=== PATIENT | male | born 1970 | race Caucasian/White ===

== ENCOUNTER 2018-05-08 10:49 | Inpatient (IN) ==
[2018-04-30 16:16] LABS: HEMATOCRIT 30.5 % (42.0-52.0); HEMOGLOBIN 9.3 g/dL (14.0-18.0); MCH 22.7 PG (27-31); MCHC 30.5 g/dL (33-37); MCV 74.4 FL (81-99); PLT 758 X1000 (130-400); RDW 18.4 % (11.5-14.5); WBC 8.55 X1000 (4.8-10.8)
[2018-04-30 16:25] LABS: INR 1.44; PROTIME 18.7 Seconds (11.0-16.0)
[2018-04-30 16:36] LABS: AGAP 7; BUN 5 mg/dL (8-22); CALCIUM 8.3 mg/dL (8.8-10.2); CHLORIDE 93 mmol/L (98-107); COSMO 255; CREATININE 0.5 mg/dL (0.7-1.2); ESTIMATED GFR > 60; GLUCOSE 115 mg/dL (70-104); POTASSIUM 4.2 mmol/L (3.5-5.1); SODIUM 128 mmol/L (136-145); TCO2 28 mmol/L (25-35)
[2018-04-30 16:56] LABS: BASO 2 % (0-1); EOS 2 % (1-10); LYMPHS 24 % (21-51); MONO 6 % (1-9); SEGS 66 % (42-75)
[2018-04-30 16:57] LABS: HYPOCHROM 2+; TARGET CELLS 1+
[2018-05-08] MEDS ORDERED: KEFZOL 1 GM/D5W 1 GM/50 ML IVPB ONE (11:34)
[2018-05-08] MEDS ORDERED: LR 1,000 ML ONE (11:34)
[2018-05-08 12:14] LABS: INR 2.21; PROTIME 26.1 Seconds (11.0-16.0)
[2018-05-08] MEDS ORDERED: DIPRIVAN 1% ONE (12:44)
[2018-05-08] MEDS ORDERED: XYLOCAINE-MPF 2% ONE (12:44)
[2018-05-08] MEDS ORDERED: FENTANYL ONE ×2 (12:45→13:34)
[2018-05-08] MEDS ORDERED: KEFZOL ONE (12:47)
[2018-05-08] MEDS ORDERED: NS 2,000 ML ONE (12:47)
[2018-05-08] MEDS ORDERED: HEPARIN ONE ×2 (12:47→13:59)
[2018-05-08] MEDS ORDERED: QUELICIN (DOSE) ONE (13:13)
[2018-05-08] MEDS ORDERED: ZEMURON ONE (13:14)
[2018-05-08] MEDS ORDERED: HEPARIN (DOSE) ONE (13:23)
[2018-05-08 14:05] LABS: URINE SOURCE CATH
[2018-05-08 14:11] LABS: BILIRUBIN URINE NEGATIVE (NEGATIVE); BLOOD URINE NEGATIVE (NEGATIVE); COLOR YELLOW; GLUCOSE URINE NEGATIVE (NEGATIVE); KETONE URINE NEGATIVE (NEGATIVE); LEUKOCYTES URINE NEGATIVE (NEGATIVE); NITRITE URINE NEGATIVE (NEGATIVE); PROTEIN URINE NEGATIVE (NEGATIVE); TURBIDITY URINE CLEAR (CLEAR); UR EPITHELIAL CELLS <10 /HPF (<10); URINE BACTERIA NEGATIVE /HPF; URINE RBC <10 /HPF (<10); URINE WBC <10 /HPF (<10); UROBILINOGEN URINE NORMAL (NORMAL)
[2018-05-08] MEDS ORDERED: ROBINUL ONE (15:19)
[2018-05-08] MEDS ORDERED: NEOSTIGMINE ONE (15:19)
[2018-05-08] MEDS ORDERED: PROTAMINE SULFATE ONE (15:37)
[2018-05-08] MEDS ORDERED: NS 1,000 ML ONE (16:26)
[2018-05-08] MEDS: DILAUDID ONE ×6 (16:26→17:05)
[2018-05-08] MEDS: DILAUDID IV PRN ×2 (21:22→23:22)
--- NOTE | 2018-05-08 22:36 | OPERATIVE NOTE ---
PROCEDURE DATE: 05/08/2018 NAME OF PROCEDURE: 1. Vein graft fistulogram. 2. Thrombectomy of vein graft. 3. Ligation of multiple arteriovenous fistulae. 4. Percutaneous balloon angioplasty of the vein graft stenosis. 5. Debridement of skin and soft tissue of the transmetatarsal amputation site. SURGEON: Jacques Holm MD. ASSEMBLY LINE INSPECTOR: NINO Mendez. PREOPERATIVE DIAGNOSES: 1. Transmetatarsal amputation site necrosis. 2. Vein graft thrombosis/dysfunction. POSTOPERATIVE DIAGNOSES: 1. Transmetatarsal amputation site necrosis. 2. Vein graft thrombosis/dysfunction, with vein graft occlusion and stenosis. DESCRIPTION OF PROCEDURE: Under satisfactory general anesthesia, the left leg and foot were prepped and draped in a sterile fashion. We did cover up the foot. We imaged the vein graft in its proximal aspect and percutaneously stuck it in a Seldinger technique and put a 6-Ukrainian sheath. We gave the patient 5000 units of heparin. We then shot a fistulogram , revealing multiple AV fistulae in the thigh and a vein graft stenosis at the knee. We first cut down and ligated the multiple AV fistulae of the thigh. We then passed a 0.018 wire across the stenosis and passed a 3 x 2 saber balloon across the stenosis and ballooned it to nominal pressures for a minute. This resolved that stenosis. We then shot further contrast down the leg and noticed that the main vein graft took an S-shaped turn. Off of that again were multiple AV fistulae and then a thrombosis of the vein graft. We ligated the fistulae. We then traversed the curved portion of the vein graft using a Glidewire and a Luray catheter. We could not get the wire, though, to continue down the main vein graft. Rather, it would go off the branch. So we cut down on the vein graft near the ankle and did a transverse vein graftotomy, passed a 3- Melany distally and proximally, and removed clot. We really did not get good back bleeding. We shot an arteriogram through the vein graft, and there was poor flow into the foot through the posterior tibial artery. So we really did not have adequate runoff into the foot. We then were able to finally traverse or get into the branch of the vein graft that continued on to the anastomosis, and we ballooned it after doing the thrombectomy using a 4 mm balloon, only to 5 atmospheres, never to nominal pressures. Following this, we closed the vein graftotomy with 7-0 Prolene stitches. We shot a completion arteriogram and again did not have good runoff into the foot, so we felt that this probably was futile to attempt further revision of the vein graft. So we came back up and removed our sheath and closed that hole in the vein graft under direct visualization using a 6-0 Prolene gvpany-fg-dsvke stitch. We did give the patient 10 mg of protamine to reverse the heparin that we had given. We closed all of our wounds with 3-0 Polysorb in the subcutaneous tissue, and the skin was closed with jaleel. Gentle pressure was applied with gauze 4x4s. Before we did the wound coverage, we did debride the transmetatarsal stump, removing the skin and soft tissue down to the underlying soft tissue, even to the tarsal bones. There was really no evidence of healing. So we covered that with Xeroform, and then we went ahead and covered all of our leg wounds with gauze, Kerlix, and an Horacio and wrapped the foot with a Kerlix. So he was sent to the recovery room after probably 150 mL of blood loss. There was 110 mL of contrast used. He tolerated the procedure satisfactorily and was sent to the recovery room in satisfactory condition. cc: Jacques Holm MD MTDD
[2018-05-09] MEDS: NORCO-10 PO PRN ×3 (00:15→12:54)
[2018-05-09] MEDS: DILAUDID IV PRN ×9 (02:58→22:24)
[2018-05-09] MEDS: NS 1,000 ML IV SCH ×2 (05:40→19:56)
[2018-05-09 06:02] LABS: BASO# 0.03 X1000 (0.0-0.2); BASO% 0.2 % (0.0-0.8); EOS# 0.07 X1000 (0.0-0.7); EOS% 0.5 % (0.0-10.0); HEMATOCRIT 27.8 % (42.0-52.0); HEMOGLOBIN 8.3 g/dL (14.0-18.0); IMM GRAN# 0.04 X1000 (0.0-0.04); IMM GRAN% 0.3 % (0.0-0.5); LYMPH# 2.34 X1000 (1.2-3.4); LYMPH% 16.3 % (20.5-51.1); MCH 22.3 PG (27-31); MCHC 29.9 g/dL (33-37); MCV 74.5 FL (81-99); MONO# 2.24 X1000 (0.11-0.59); MONO% 15.6 % (1.7-9.3); MPV 9.2 FL (7.4-10.4); NEUT% 67.1 % (42.2-75.2); PLT 660 X1000 (130-400); RBC 3.73 XMIL (4.7-6.1); RDW 18.3 % (11.5-14.5); WBC 14.32 X1000 (4.8-10.8)
[2018-05-09 06:03] LABS: AGAP 12; BUN 4 mg/dL (8-22); CALCIUM 7.9 mg/dL (8.8-10.2); CHLORIDE 97 mmol/L (98-107); COSMO 267; CREATININE 0.4 mg/dL (0.7-1.2); ESTIMATED GFR > 60; GLUCOSE 97 mg/dL (70-104); POTASSIUM 3.5 mmol/L (3.5-5.1); SODIUM 135 mmol/L (136-145); TCO2 26 mmol/L (25-35)
[2018-05-09 06:14] LABS: INR 2.25; PROTIME 26.5 Seconds (11.0-16.0)
[2018-05-09] MEDS: PERIDEX MT SCH ×3 (08:03→22:24)
[2018-05-09] MEDS: KEFZOL 1 GM/D5W 1 GM/50 ML IVPB IV SCH ×2 (08:11→16:00)
--- NOTE | 2018-05-09 09:25 | GENERAL SURGERY PROGRESS NOTE ---
DATE: 05/09/2018 TIME: 7:55 in the morning. Mr. Reardon is afebrile. Heart rate 113, blood pressure 122/78. His white count is 14,300, hemoglobin 8.3, hematocrit 27.8. ProTime is 26.5, INR 2.25. BUN 4, creatinine 0.4. I discussed with him the imminent need for amputation. I discussed with him the fact that we could not revise his bypass adequately. He understands that he will face amputation, and above the knee will be what is required in order for healing. His ProTime remains out this morning. Will recheck his ProTime in the morning. I will order Kefzol. cc: Jacques Holm MD
[2018-05-10] MEDS: KEFZOL 1 GM/D5W 1 GM/50 ML IVPB IV SCH ×3 (00:35→15:41)
[2018-05-10] MEDS: DILAUDID IV PRN ×11 (00:35→22:22)
[2018-05-10] MEDS ORDERED: TYLENOL LIQUID PO PRN (00:43)
[2018-05-10 06:08] LABS: INR 2.2
[2018-05-10 06:15] LABS: BASO# 0.02 X1000 (0.0-0.2); BASO% 0.1 % (0.0-0.8); EOS# 0.05 X1000 (0.0-0.7); EOS% 0.3 % (0.0-10.0); HEMATOCRIT 28.2 % (42.0-52.0); HEMOGLOBIN 8.2 g/dL (14.0-18.0); LYMPH# 2.14 X1000 (1.2-3.4); LYMPH% 14.9 % (20.5-51.1); MCH 22.2 PG (27-31); MCHC 29.1 g/dL (33-37); MCV 76.4 FL (81-99); MONO# 2.08 X1000 (0.11-0.59); MONO% 14.5 % (1.7-9.3); MPV 9.3 FL (7.4-10.4); NEUT% 70.2 % (42.2-75.2); PLT 653 X1000 (130-400); RBC 3.69 XMIL (4.7-6.1); RDW 18.2 % (11.5-14.5); WBC 14.39 X1000 (4.8-10.8)
[2018-05-10 06:23] LABS: AGAP 12; BUN 5 mg/dL (8-22); CHLORIDE 96 mmol/L (98-107); COSMO 263; CREATININE 0.5 mg/dL (0.7-1.2); ESTIMATED GFR > 60; GLUCOSE 82 mg/dL (70-104); POTASSIUM 3.4 mmol/L (3.5-5.1); SODIUM 133 mmol/L (136-145); TCO2 25 mmol/L (25-35)
[2018-05-10] MEDS ORDERED: VITAMIN K 10 MG in NS 50 ML IV ONE (07:24)
--- NOTE | 2018-05-10 07:54 | PROGRESS NOTE ---
DATE: 05/10/2018 SUBJECTIVE: Mr. Donny Reardon is a 48-year-old white male, patient of Dr. Holm. He has an ischemic left leg. His arterial bypasses failed. He has been on chronic Coumadin, but that has been stopped. His INR is still over 2. He needs an xrmum-vsv-brtb amputation. OBJECTIVE: His heart rate is 125, blood pressure 120/78, O2 saturation 100%. He is afebrile. He is on IV Ancef. His white blood cell count is 14. Hematocrit is 28%. Electrolytes are within normal limits. PLAN: We will give him vitamin K to try to reverse his anticoagulation, so that we can move ahead with a left ihgsp-uey-tdyj amputation. cc: MD Jacques Franco MD
[2018-05-10] MEDS: PERIDEX MT SCH ×2 (08:43→20:11)
[2018-05-10] MEDS: NS 1,000 ML IV SCH (08:43)
[2018-05-10] MEDS ORDERED: VITAMIN K SUBQ ONE (16:16)
[2018-05-11] MEDS: DILAUDID IV PRN ×9 (00:37→22:06)
[2018-05-11] MEDS: KEFZOL 1 GM/D5W 1 GM/50 ML IVPB IV SCH ×3 (03:01→18:29)
[2018-05-11 06:26] LABS: INR 1.3; PROTIME 17.2 Seconds (11.0-16.0)
[2018-05-11] MEDS: NS 1,000 ML IV SCH (09:10)
[2018-05-11] MEDS: PERIDEX MT SCH ×2 (09:58→20:06)
[2018-05-11] MEDS ORDERED: ROBINUL ONE (11:47)
[2018-05-11] MEDS ORDERED: XYLOCAINE-MPF 2% ONE (11:47)
[2018-05-11] MEDS ORDERED: FENTANYL ONE (11:49)
[2018-05-11] MEDS ORDERED: SENSORCAINE-MPF 0.5%/EPI 1:200,000 ONE (11:54)
[2018-05-11] MEDS ORDERED: VERSED ONE (11:58)
[2018-05-11] MEDS ORDERED: ZOFRAN ONE (12:36)
[2018-05-11] MEDS ORDERED: DIPRIVAN 1% ONE (12:36)
[2018-05-11] MEDS ORDERED: NEO-SYNEPHRINE ONE (12:37)
[2018-05-11] MEDS ORDERED: SODIUM CHLORIDE 0.9% 20 ML ONE (12:37)
[2018-05-11] MEDS ORDERED: SODIUM CHLORIDE 0.9% 10 ML ONE (13:07)
[2018-05-11] MEDS ORDERED: ROMAZICON (DOSE) ONE ×2 (13:22→13:25)
[2018-05-11 13:47] LABS: URINE SOURCE CATH
[2018-05-11 13:52] LABS: BILIRUBIN URINE NEGATIVE (NEGATIVE); BLOOD URINE NEGATIVE (NEGATIVE); COLOR YELLOW; GLUCOSE URINE NEGATIVE (NEGATIVE); KETONE URINE NEGATIVE (NEGATIVE); LEUKOCYTES URINE NEGATIVE (NEGATIVE); NITRITE URINE NEGATIVE (NEGATIVE); PROTEIN URINE NEGATIVE (NEGATIVE); SP GRAVITY URINE 1.008; TURBIDITY URINE CLEAR (CLEAR); UROBILINOGEN URINE NORMAL (NORMAL)
[2018-05-11 13:54] LABS: UR EPITHELIAL CELLS <10 /HPF (<10); URINE BACTERIA NEGATIVE /HPF; URINE WBC <10 /HPF (<10)
[2018-05-12] MEDS: NS 1,000 ML IV SCH ×3 (00:10→14:12)
[2018-05-12] MEDS: DILAUDID IV PRN ×11 (00:10→22:53)
[2018-05-12] MEDS: KEFZOL 1 GM/D5W 1 GM/50 ML IVPB IV SCH ×3 (02:25→18:50)
--- NOTE | 2018-05-12 03:32 | OPERATIVE NOTE ---
PROCEDURE DATE: 05/11/2018 PREOPERATIVE DIAGNOSIS: Ischemic left leg. POSTOPERATIVE DIAGNOSIS: Ischemic left leg. PRINCIPAL PROCEDURE: Left mfrvh-nln-dknp amputation. SURGEON: Susan Gleason MD. ANESTHESIA: General in addition to local anesthetic. ESTIMATED BLOOD LOSS: 150 mL. DRAINS: None. INDICATIONS: Mr. Donny Reardon is a 48-year-old, very slim, white male, who Dr. Holm had tried to preserve his left foot. His left foot had rest pain. He has undergone a transmetatarsal amputation. He has got contractions involving the left lower extremity and he has got poor healing. It was felt that he needed a left kdaha-ycl-cmvx amputation. FINDINGS: I felt the blood supply was good enough for wound healing at the yhslo-gzw-uyos amputation stump. He still had flow through his arterial bypass graft which used the left great saphenous vein. We felt our closure of our reerp-lpo-vjyz amputation stump was adequate. DESCRIPTION OF PROCEDURE: The patient was brought to the operating room, placed supine, received general anesthesia, was intubated. I placed a Vizcaino catheter tube. We wrapped his left leg, and prepped and draped his left thigh and knee. He had previous incisions in the left groin and lower in the left leg from his bypass graft. I marked a fishmouth incision using a skin marker and then I made my incisions with a 10 blade scalpel. I used cautery for dissection. As we ran across blood vessels, we controlled them with hemostats and Izabel clamps. I ligated them with 2-0 silk ties and 2-0 stick ties as needed. The cautery was used to cut through the muscle layers and as we came across these vessels, we controlled them. There was flow in the arterial bypass graft. I used a Gigli saw to transect the left femur and then I used a rasp to smooth the cut ends of the femur. We made sure that we transected the nerve high in the stump so that he would not have chronic pain. I closed the wound in several layers. I closed the deep muscle overlying the cut edge of the bone with interrupted 0 Vicryl stitches. I closed the superficial fascia anterior to posterior transversely across our wound with interrupted 0 Vicryl stitches and then I closed the skin with a skin clip fur puller. We will leave the Vizcaino catheter tube in place. The above-the- knee amputation was dressed using Xeroform, dry 4x4s, and Kerlix, and plans are for him to go to the recovery room and then to the floor. cc: MD Jacques Franco MD
[2018-05-12 08:11] LABS: HEMATOCRIT 21.9 % (42.0-52.0); HEMOGLOBIN 6.5 g/dL (14.0-18.0)
[2018-05-12] MEDS: PERIDEX MT SCH ×2 (08:49→21:02)
--- NOTE | 2018-05-12 10:26 | PROGRESS NOTE ---
DATE: 05/12/2018 Mr. Donny Reardon is a 48-year-old, white male who is now postop day 1 from a left jixha-yej-mmeq amputation. His wound is dressed without any evidence of ongoing bleeding. He states that he had a good night last night and was able to rest. He has a Vizcaino catheter tube in place, which we will discontinue. We will check hematocrit. cc: MD Jacques Franco MD
[2018-05-13] MEDS: DILAUDID IV PRN ×9 (01:17→21:57)
[2018-05-13] MEDS: NS 1,000 ML IV SCH ×3 (01:22→15:42)
[2018-05-13] MEDS: KEFZOL 1 GM/D5W 1 GM/50 ML IVPB IV SCH ×2 (04:01→10:52)
[2018-05-13] MEDS: PERIDEX MT SCH ×3 (10:53→22:58)
--- NOTE | 2018-05-13 12:32 | GENERAL SURGERY PROGRESS NOTE ---
DATE: 05/13/2018 Mr. Reardon is now 2 days after his above-knee amputation after a failed revision of his bypass. He is sleepy, but arousable. He is afebrile. Heart rate 110, blood pressure 120/76. His bandage is dry. The plan is a recheck his labs tomorrow. Will start working on transfer to rehab when a bed is available. I have discussed this with him and he agrees. cc: Jacques Holm MD
[2018-05-13] MEDS: NORCO-10 PO PRN (22:59)
[2018-05-14] MEDS: DILAUDID IV PRN ×6 (02:06→21:06)
[2018-05-14] MEDS: ZOFRAN IV PRN ×2 (02:07→21:07)
[2018-05-14] MEDS: NS 1,000 ML IV SCH (03:57)
[2018-05-14] MEDS: NORCO-10 PO PRN (05:28)
[2018-05-14] MEDS: PERIDEX MT SCH ×3 (13:56→22:17)
[2018-05-14] MEDS ORDERED: NS 1,000 ML IV SCH (15:15)
--- NOTE | 2018-05-14 15:38 | GENERAL SURGERY PROGRESS NOTE ---
DATE: 05/14/2018 He is postop day 3 after AK amputation. His wound was inspected today it looks okay. We will check his labs tomorrow. We are working on rehab. cc: Jacques Holm MD
[2018-05-14] MEDS: HYDROCODONE/APAP 7.5-325/15 ML PO PRN (22:16)
[2018-05-15] MEDS: DILAUDID IV PRN ×7 (00:28→21:38)
[2018-05-15] MEDS: HYDROCODONE/APAP 7.5-325/15 ML PO PRN (03:33)
[2018-05-15 06:21] LABS: INR 1.11; PROTIME 15.2 Seconds (11.0-16.0)
[2018-05-15 06:22] LABS: BASO# 0.02 X1000 (0.0-0.2); BASO% 0.3 % (0.0-0.8); HEMATOCRIT 27.2 % (42.0-52.0); HEMOGLOBIN 8.3 g/dL (14.0-18.0); LYMPH# 1.97 X1000 (1.2-3.4); LYMPH% 24.7 % (20.5-51.1); MCH 23.9 PG (27-31); MCHC 30.5 g/dL (33-37); MCV 78.4 FL (81-99); MONO# 1.27 X1000 (0.11-0.59); MPV 9.8 FL (7.4-10.4); PLT 306 X1000 (130-400); RBC 3.47 XMIL (4.7-6.1); RDW 21.3 % (11.5-14.5); WBC 7.96 X1000 (4.8-10.8)
[2018-05-15 06:57] LABS: AGAP 6; BUN 3 mg/dL (8-22); CHLORIDE 102 mmol/L (98-107); COSMO 270; CREATININE 0.3 mg/dL (0.7-1.2); ESTIMATED GFR > 60; GLUCOSE 88 mg/dL (70-104); POTASSIUM 2.8 mmol/L (3.5-5.1); SODIUM 137 mmol/L (136-145); TCO2 29 mmol/L (25-35)
[2018-05-15 07:13] LABS: CALCIUM 7.1 mg/dL (8.8-10.2)
[2018-05-15] MEDS: PERIDEX MT SCH (07:59)
[2018-05-15 08:12] LABS: BANDS 2 % (0-1); LYMPHS 20 % (21-51); MONO 6 % (1-9); SEGS 70 % (42-75)
[2018-05-15] MEDS ORDERED: SALINE LOCK IV FLUID XX ONE (11:57)
--- NOTE | 2018-05-15 12:22 | GENERAL SURGERY PROGRESS NOTE ---
DATE: 05/15/2018 SUBJECTIVE: Mr. Reardon is sitting up in a chair. His pain relief appears adequate. We are awaiting rehab referral. OBJECTIVE: Potassium today is 2.8; so, we will give him some potassium. Hemoglobin 8.3. cc: Jacques Holm MD
[2018-05-16] MEDS: PERIDEX MT SCH ×3 (00:38→21:26)
[2018-05-16] MEDS: DILAUDID IV PRN ×5 (00:38→12:59)
[2018-05-16] MEDS: POTASSIUM CHLORIDE 20% LIQUID PO SCH (08:34)
--- NOTE | 2018-05-16 15:12 | GENERAL SURGERY PROGRESS NOTE ---
DATE: 05/16/2018 He is 5 days after is left AKA. His wound is looking fine. He has got a bed at rehab tomorrow, and will plan to transfer him to rehab in [place] tomorrow. He has been up today, he stood up with Physical Therapy's help. cc: Jacques Holm MD
[2018-05-16] MEDS: HYDROCODONE/APAP 7.5-325/15 ML PO PRN ×2 (16:00→20:04)
[2018-05-16] MEDS: DILAUDID IV SCH ×2 (17:32→20:04)
[2018-05-17] MEDS: HYDROCODONE/APAP 7.5-325/15 ML PO PRN ×3 (00:27→10:47)
[2018-05-17] MEDS: DILAUDID IV SCH ×4 (00:27→13:22)
[2018-05-17 07:19] LABS: BASO# 0.02 X1000 (0.0-0.2); BASO% 0.3 % (0.0-0.8); EOS# 0.39 X1000 (0.0-0.7); EOS% 5.8 % (0.0-10.0); HEMATOCRIT 29.7 % (42.0-52.0); LYMPH# 1.81 X1000 (1.2-3.4); LYMPH% 26.8 % (20.5-51.1); MCH 24.5 PG (27-31); MCHC 30.3 g/dL (33-37); MCV 80.7 FL (81-99); MONO# 1.27 X1000 (0.11-0.59); MONO% 18.8 % (1.7-9.3); MPV 9.7 FL (7.4-10.4); NEUT# 3.27 X1000 (1.4-6.5); NEUT% 48.3 % (42.2-75.2); PLT 299 X1000 (130-400); RBC 3.68 XMIL (4.7-6.1); RDW 22.1 % (11.5-14.5); WBC 6.76 X1000 (4.8-10.8)
[2018-05-17 07:35] LABS: AGAP 7; BUN 2 mg/dL (8-22); CALCIUM 7.5 mg/dL (8.8-10.2); CHLORIDE 103 mmol/L (98-107); COSMO 273; CREATININE 0.3 mg/dL (0.7-1.2); ESTIMATED GFR > 60; GLUCOSE 79 mg/dL (70-104); POTASSIUM 4.5 mmol/L (3.5-5.1); SODIUM 139 mmol/L (136-145); TCO2 29 mmol/L (25-35)
[2018-05-17] MEDS: PERIDEX MT SCH (08:41)
[2018-05-17] MEDS: POTASSIUM CHLORIDE 20% LIQUID PO SCH (08:41)
--- NOTE | 2018-05-17 10:22 | DISCHARGE SUMMARY ---
ADMISSION DATE: 05/08/2018 DISCHARGE DATE: 05/17/2018 PRIMARY DISCHARGE DIAGNOSES: 1. Ischemic gangrene of the left foot. 2. Failed femoral distal bypass. PRIMARY PROCEDURE: Fistulogram, thrombectomy of the vein graft, ligation of multiple fistulae, balloon angioplasty of vein graft stenosis, and debridement of the skin and soft tissue of the transmetatarsal amputation site, on 05/08/2018. Another procedure was done on 05/11/2018 that was a left AK amputation by Dr. Gleason. HISTORY AND HOSPITAL COURSE: This is a 48-year-old gentleman who had presented in the past with rest pain of the foot. He underwent a distal bypass, but then a transmetatarsal amputation, but the transmetatarsal amputation was not healing and it was felt that the distal bypass was not functioning adequately. So, we attempted revision to supply his foot with better flow. However, we failed to accomplish that despite multiple efforts to improve the distal flow. He subsequently then underwent an AK amputation. In the hospital, he did require Dilaudid. He had been on hydrocodone at home for his pain, as well as gabapentin, but we gradually started weaning him off the Dilaudid and transfer him to the hydrocodone. He is in need of transfer training and ambulation teaching and, therefore, we are transferring him to rehab for that. cc: Jacques Holm MD
[2018-05-17 12:26] VITALS: BP 131/87
== END 2018-05-17 14:54 | DRG 239 ==
LOC: OR 10:49 → 4N 10:49 → OBSVTOIN 16:11 → 4N 05-15 08:22
PROVIDERS: ADMIT Surgery; ATTEND Surgery
CPT/HCPCS: 36430; 80048; 81001; 85014; 85018; 85025; 85027; 85610; 86850; 86900; 86901; 86920; 88304; 88307; 94761; 94799; 97110; 97116; 97162; 97166; 97530; 97535; A9270; C1725; J0330; J0690; J1170; J1644; J2250; J2370; J2405; J2720; J3010; J3430; J7030; J7120; P9016; Q9967